=== PATIENT | male | born 1970 | race Caucasian/White ===

== ENCOUNTER 2016-09-27 11:38 | Outpatient (RCR) | payer MEDICARE, MEDICAID ==
[~2016-09-27 11:38] MED LIST: ACET300T52 PO; AMBI10TA PO; CELE10TA PO; CYCL5TA PO; FENO67CA2 PO; HYDR25TAB PO; INDE1CAP6 PO; LISI40TAB PO; LYRI150C PO; NEXI40CA PO; PROT1TAB2 PO; RITA10TA PO; RITA20TA PO; TRAZ50TA4 PO
[2016-10-24] MEDS ORDERED: SILV-4 TOP (09:41)
== END 2016-10-25 ==
LOC: M ONCR 11:38
PROVIDERS: ATTEND Radiology Radiation Oncology
DX: C20 Malignant neoplasm of rectum (principal)

== ENCOUNTER → 2016-10-24 | Outpatient (CLI) | payer MEDICARE, MEDICAID ==
[~2016-10-24] MED LIST changes: +SILV-4 TOP
[2016-10-24 10:06] LABS: MEAN CORPUSCULAR HEMOGLOBIN 34.8 pg (27.0-33.0); MEAN CORPUSCULAR HGB CONC 34.4 g/dl (32.0-36.5); MEAN CORPUSCULAR VOLUME 101.1 fl (80.0-96.0); RED CELL DISTRIBUTION WIDTH 18.6 % (11.5-14.5)
--- NOTE | 2016-10-25 10:38 | RADONC ---
RADIATION ONCOLOGY PROGRESS NOTE: DATE: 10/24/2016 Mr. Mckenna is presently at a dose of 3600 cGy to his pelvis and is tolerating treatments quite well at this point with no significant difficulties related to his radiation therapy. He is having no significant urinary or bowel difficulties. He does report some black stools occasionally which are continuing. I have repeated a CBC but it does not show any blood loss. REVIEW OF SYSTEMS: The patient's review of systems are positive for some dark colored stools but is otherwise noncontributory. He denies nausea, vomiting, fevers, chills, night sweats, diplopia, headaches, anxiety or depression, anorexia, weight loss, visual disturbances, chest pain, urinary or bowel difficulties, bone pain, or neurological problems. PHYSICAL EXAMINATION: The patient's skin shows some brisk erythema present but overall is in good condition with no evidence of moist dry desquamation. The remainder of his physical exam remains unchanged. Mr. Mckenna is tolerating treatments quite well and radiation will continue as scheduled.
== END ==
LOC: M ONCR 09:45
PROVIDERS: ATTEND Radiology Radiation Oncology
DX: C20 Malignant neoplasm of rectum (principal)

== ENCOUNTER 2016-10-26 11:22 | Outpatient (RCR) | payer MEDICARE, MEDICAID ==
--- NOTE | 2016-11-01 07:51 | RADONC ---
RADIATION ONCOLOGY TREATMENT SUMMARY CHART NUMBER: [id number] DATE: 10/31/2016 DIAGNOSIS: Rectal cancer. STAGE: Clinical IIIB, T3N1-2,M0. ECOG PERFORMANCE STATUS: 1. TREATMENT SUMMARY: Mr. 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 We treated the patient to his rectum for a total dose of 4500 cGy delivered in 25 fractions of 180 cGy each over 40 elapsed days from 09/21/2016 through 10/31/2016. The patient's rectum was treated on a linear accelerator utilizing 18 MV photon beam via 3-D conformal technique with posterior left to right lateral castellano. Mr. Mckenna tolerated his treatments quite well with no significant difficulties related to his radiation therapy. The patient is scheduled to see me again in 1 month for further followup and is scheduled to be seen by his surgeons at [facility] within the next week for planning of his surgery. The patient was able to complete therapy as prescribed without difficulty. Thank you for allowing us to participate in the care of this very pleasant gentleman. If I could be of any further assistance or provide you with any information, please feel free to contact me anytime. cc: Yvette Tubbs MD *Shiv Richter MD *Julissa Villanueva MD
== END 2016-11-22 ==
LOC: M ONCR 11:22
PROVIDERS: ATTEND Radiology Radiation Oncology
DX: C20 Malignant neoplasm of rectum (principal)

== ENCOUNTER → 2017-01-23 | Outpatient (REF) | payer MEDICARE, MEDICAID | LOC: M LAB REF 12:27 | PROVIDERS: ATTEND Internal Medicine Medical Oncology | DX: C20 Malignant neoplasm of rectum (principal) ==

== ENCOUNTER → 2017-02-22 | Outpatient (REF) | payer MEDICARE, MEDICAID | LOC: M LAB REF 12:26 | PROVIDERS: ATTEND Internal Medicine Medical Oncology | DX: C20 Malignant neoplasm of rectum (principal) ==

== ENCOUNTER → 2017-03-23 | Outpatient (CLI) | payer MEDICARE, MEDICAID ==
[~2017-03-23] MED LIST changes: +LIDOCAINE W/EPINEPHRINE 1% 20ML VIAL As Ordered ONE; +TRAZ50TA11 PO; -TRAZ50TA4 PO
--- NOTE | 2017-03-23 14:52 | REPKIM ---
CLINICAL HISTORY: Patient has a right IJ chest vubqjs-a-infk. The referring service has requested to remove the chest mfngjg-f-ichp because it is no longer needed. PROCEDURE PERFORMED: Chest Yffapl-Q-Efhy Removal INTERVENTIONALIST: Srikanth Calderon MD MEDICATIONS: Local Lidocaine EBL: less than 5 mL CONSENT: The risks, benefits and alternatives to the procedure were explained to the patient and informed written consent was obtained. PROCEDURE/FINDINGS: The patient was brought to the interventional radiology suite and was positioned supine on the table. Time out procedure was performed. Fluoroscopy of the chest showed the right chest qcudkt-d-gevv is intact with its tip in a satisfactory course and position. The right upper chest was prepped and draped in the usual sterile fashion. Local anesthesia was administered to the overlying skin and surrounding deep tissue around the existing port. Then a skin incision was made. The port was bluntly dissected free from the surrounding soft tissues. Then the port and its associated catheter was removed in its entirety. The deep tissue was closed with interrupted 2-0 Vicryl suture. The skin incision closed with running subcutaneous 4-0 Vicryl suture and steristrips. The patient tolerated the procedure well with no immediate complications. This procedure was performed using fluoroscopy. Dr. Calderon was present. IMPRESSION: Successful right IJ chest sspcja-b-rrra removal as discussed above. cc: Yvette Tubbs MD [facility]
== END | disposition home or self-care (01) ==
LOC: M IRPRO 12:20
PROVIDERS: ATTEND Internal Medicine Medical Oncology
DX: Z45.2 Encounter for adjustment and management of vascular access device (principal); C20 Malignant neoplasm of rectum

== ENCOUNTER → 2017-06-13 | Outpatient (REF) | payer MEDICARE, MEDICAID ==
[~2017-06-13] MED LIST changes: -LIDOCAINE W/EPINEPHRINE 1% 20ML VIAL As Ordered ONE
== END ==
LOC: M LAB REF 17:19
PROVIDERS: ATTEND Internal Medicine Medical Oncology
DX: C20 Malignant neoplasm of rectum (principal)

== ENCOUNTER → 2018-06-28 | Outpatient (CLI) | payer MEDICARE, MEDICAID | LOC: M RAD 09:59 | DX: R20.0 Anesthesia of skin (principal); Z85.048 Personal history of other malignant neoplasm of rectum, rectosigmoid junction, and anus; M15.0 Primary generalized (osteo)arthritis | CPT/HCPCS: 78306 ==

== ENCOUNTER → 2018-07-12 | Outpatient (CLI) | payer MEDICARE, MEDICAID | LOC: M ONCR 12:55 | DX: C20 Malignant neoplasm of rectum (principal) | CPT/HCPCS: G0463 ==

== ENCOUNTER → 2018-07-24 | Outpatient (CLI) | payer MEDICARE, MEDICAID | LOC: M PLARAD 15:14 | DX: C20 Malignant neoplasm of rectum (principal); M16.11 Unilateral primary osteoarthritis, right hip; R91.1 Solitary pulmonary nodule; J84.10 Pulmonary fibrosis, unspecified | CPT/HCPCS: 78815 ==

== ENCOUNTER → 2019-10-04 | Outpatient (CLI) | payer MEDICARE, MEDICAID ==
[~2019-10-04] MED LIST changes: +AMPH1TAB2 PO; -CYCL5TA PO; +CYCL5TAB5 PO; +HYDR-2541 PO; +HYDR-3719 PO; -HYDR25TAB PO; +INDE160C5 PO; -INDE1CAP6 PO; +LISI40TA52 PO; -LISI40TAB PO; +METH4PACK PO; +OXYC10TA3 PO; +PROP20TA72 PO; +TRAZ-252 PO; -TRAZ50TA11 PO; +VALI2TAB PO; +VICO5TAB17 PO
--- NOTE | 2019-10-04 12:35 | REP ---
LEFT RIB SERIES: Four views. HISTORY: Rib tenderness. Pain in the axillary region. Comparison chest x-ray November 16, 2015. FINDINGS: Four views of the left rib cage show mild diffuse osteopenia. No rib fracture is appreciated. There are granulomatous calcifications in the left lung base unchanged from the prior study. Left lung appears otherwise clear. Mediastinum is not widened. There are clips in right upper quadrant. There is mild osteoarthritic spurring at the glenohumeral articulation. IMPRESSION: No acute rib abnormality. Glenohumeral osteoarthritis. Granulomatous calcifications in the left lung. Electronically Signed by Arslan Bragg MD 10/05/2019 05:15 A
== END ==
LOC: M LAB 09:35 → M RAD 09:35
PROVIDERS: ATTEND Internal Medicine Hematology
DX: J94.8 Other specified pleural conditions (principal); R91.8 Other nonspecific abnormal finding of lung field; M19.019 Primary osteoarthritis, unspecified shoulder; C20 Malignant neoplasm of rectum